=== PATIENT | female | born 1945 | race Two or more races ===

== ENCOUNTER 2024-02-21 09:34 | Inpatient (IN) | payer OTHER ==
[~2024-02-21] VITALS: Ht 162.6 cm; Wt 65.8 kg
[~2024-02-21 09:34] MED LIST: ALPRAZOLAM ODT0.5 MG; CRESTOR10 MG; FARXIGA10 MG; PRADAXA150 MG; PROZAC20 MG; TOPROL XL50 M1
--- NOTE | 2024-02-21 09:53 | NUR ---
SE RECIBE PACIENTE ALERTA Y ORIENTADA X3 REFIERE VENIR POR ORDEN DE LA PARA ESTABALIZAR LA HEMOGLOBINA, YA QUE LA MISMA LE COLOCARAN UN MEDPORT. ES PACIENTE DE CANCER DE COLON. SE MIDEN S/V Y SE PRESENTA ORDEN MEDICA A .
[2024-02-21] MEDS ORDERED: FUSION PLUS CA1 EACH (09:58)
[2024-02-21] MEDS ORDERED: 0.9 % SODIUM CHLORIDE 1,000 ML IV STA (10:28)
--- NOTE | 2024-02-21 11:11 | NUR ---
SE LE ORIENTA A PTE SOBRE TRATAMIENTO E INSTRUCCIONES A SEGUIR, [place] REFIERE ENTENDER. SE COLECETA MUESTRAS, SE CANALIZA Y SE ADMINISTRA IV FLUIDS INOCENTE ORDEN MEDICA. SE REALIZA REQUISICION DE 2 UNIDADES DE PRBC FRACCIONADAS, SE COGE CONCENTIMIENTO.
[2024-02-21 11:23] LABS: MEAN CORPUSCULAR HGB CONC 32.4 g/dl (32.0-36.0); PLATELET COUNT 270 K/uL (150-450); RED BLOOD COUNT 3.34 M/uL (4.00-6.00)
[2024-02-21 11:30] LABS: MEAN CORPUSCULAR HEMOGLOBIN 25.1 pg (27.00-32.0)
[2024-02-21 11:31] LABS: HEMOGLOBIN 8.4 g/dL (12.0-15.00)
[2024-02-21 11:43] LABS: INR 1.1; PARTIAL THROMBOPLASTIN TIME 32.2 SECONDS (22.0-34.0); PROTHROMBIN TIME 11.5 SECONDS (9.0-11.5)
[2024-02-21 11:55] LABS: ALBUMIN 3.8 gm/dL (3.4-5.0); BILIRUBIN TOTAL 0.4 mg/dL (0.3-1.2); BILIRUBIN,CONJUGATED 0.16 mg/dL (0.0-0.2); BILIRUBIN,UNCONJUGATED 0.24 mg/dL (0.0-0.6); CALCIUM 9.6 mg/dL (8.5-10.1); CREATININE SERUM 1.32 mg/dL (0.55-1.02); GFR 38.82; POTASSIUM 4.25 mEq/L (3.5-5.1); TOTAL PROTEIN 7.7 gm/dL (6.4-8.2)
[2024-02-21 13:20] LABS: URINE APPEARANCE Clear; URINE BILIRRUBIN Negative (NEGATIVE); URINE BLOOD Negative; URINE COLOR Yellow; URINE LEUKOCYTE Small; URINE NITRATE Negative; URINE PROTEIN Negative (NEGATIVE); URINE UROBILINOGEN 0.2 E.U./dl
[2024-02-21 13:24] LABS: URINE BACTERIA 60.4 uL (0.0-1933); URINE EPITHELIAL CELLS 26.8 uL (0.0-38.8); URINE RBC 5.4 uL (0.0-20.8); URINE WBC 146.8 uL (0.0-23.2)
[2024-02-21] MEDS ORDERED: DIPHENHYDRAMINE HCL 50 MG/ML VIAL 1ML IV NR (13:45)
[2024-02-21] MEDS ORDERED: FUROsemide 20 MG/2 ML VIAL IV NR (13:45)
[2024-02-21 13:46] LABS: URINE GLUCOSE >=1000 MG/DL (NEGATIVE)
[2024-02-22] MEDS ORDERED: ENALAPRILAT DIHYDRATE 1.25 MG/ML VIAL IV PRN (13:45)
[2024-02-22] MEDS ORDERED: TRAMADOL HCL50 MG PO (17:51)
[2024-02-22 18:05] LABS: HEMATOCRIT 33.5 % (36.0-45.00); MEAN CELL VOLUME 79.1 fL (80.00-100.00); MEAN CORPUSCULAR HGB CONC 32.9 g/dl (32.0-36.0); PLATELET COUNT 251 K/uL (150-450); RED BLOOD COUNT 4.24 M/uL (4.00-6.00); RED CELL DISTRIBUTION WIDTH 20.4 % (11.5-14.5)
[2024-02-22] MEDS ORDERED: HEPARIN SODIUM,PORCINE 500 UNITS/5 ML VIAL IV ONE (20:00)
[2024-02-22] MEDS ORDERED: LIDOCAINE HCL 1%/EPINEPHRINE 20ML VIAL IJ ONE (20:00)
[2024-02-22] MEDS ORDERED: BUPIVACAINE HCL 30 ML VIAL IV ONE (20:00)
[2024-02-22] MEDS ORDERED: CLINDAMYCIN PHOSPHATE 150 MG/ML (900mg) IV ONE (20:00)
== END 2024-02-22 21:36 | disposition home or self-care (01) | DRG 376 ==
LOC: ER 09:35 → SURG 11:04 → SEC-K 11:04 → SURG 12:18
PROVIDERS: General Practice; ADMIT Surgery; ATTEND Surgery
PROC: 30233N1 Transfusion of Nonautologous Red Blood Cells into Peripheral Vein, Percutaneous Approach (ICD-10-PCS; principal; 2024-02-21)
PROC: 05H533Z Insertion of Infusion Device into Right Subclavian Vein, Percutaneous Approach (ICD-10-PCS; 2024-02-22)
DX: C18.2 Malignant neoplasm of ascending colon (principal); Z20.822 Contact with and (suspected) exposure to COVID-19; D63.0 Anemia in neoplastic disease

== ENCOUNTER 2024-07-01 15:18 | Inpatient (IN) | payer OTHER ==
[~2024-07-01] VITALS: Ht 172.7 cm; Wt 159.7 kg
[~2024-07-01 15:18] MED LIST changes: +FUSION PLUS CA1 EACH; +TRAMADOL HCL50 MG PO
[2024-07-01] MEDS ORDERED: METFORMIN HCL500 M3 (15:53)
--- NOTE | 2024-07-01 15:53 | NUR ---
SE RECIBE PTE ALERTA YORIENTADA LA CUAL REFIERE VENIR POR REFERIDO POR DRA. KENDALL CHUNG PARA ADMITIR POR MEDPORT INFECTADO . SE MIDEN S/V A PTE Y SE UBICA.
[2024-07-01] MEDS ORDERED: 0.9 % SODIUM CHLORIDE 1,000 ML IV SCH (16:30)
--- NOTE | 2024-07-01 17:12 | NUR ---
SE ORIENTA A PACIENTE SOBRE TX MEDICO, REFIERE ENTENDER. SE REALIZAN MUESTRAS DE LABORATORIO BAJO MEDIDAS ASEPTICAS. SE ADMINISTRA IV'S INOCENTE ORDEN MEDICA. SE COORDINA VINAYAK X. PACIENTE MANEJADA POR .
[2024-07-01 17:21] LABS: HEMATOCRIT 31.4 % (36.0-45.00); HEMOGLOBIN 10.9 g/dL (12.0-15.00); MEAN CELL VOLUME 88.7 fL (80.00-100.00); MEAN CORPUSCULAR HEMOGLOBIN 30.6 pg (27.00-32.0); MEAN CORPUSCULAR HGB CONC 34.5 g/dl (32.0-36.0); PLATELET COUNT 183 K/uL (150-450); RED BLOOD COUNT 3.54 M/uL (4.00-6.00); RED CELL DISTRIBUTION WIDTH 20.8 % (11.5-14.5)
[2024-07-01 17:47] LABS: INR 1.15; PARTIAL THROMBOPLASTIN TIME 37.3 SECONDS (22.0-34.0); PROTHROMBIN TIME 12.4 SECONDS (9.0-11.5)
[2024-07-01 17:48] LABS: CALCIUM 9.8 mg/dL (8.5-10.1); CREATININE SERUM 1.72 mg/dL (0.55-1.02); GFR 28.6; POTASSIUM 3.91 mEq/L (3.5-5.1)
[2024-07-01] MEDS ORDERED: CIPROFLOXACIN IN 5 % DEXTROSE 400 MG/200 ML PIGGYBAG IV ONE (18:00)
[2024-07-01] MEDS ORDERED: VANCOMYCIN HCL 1,000 MG VIAL IV ONE (18:15)
[2024-07-01 18:44] VITALS: BP 128/75; O2SAT 96
[2024-07-01 20:50] LABS: URINE APPEARANCE Clear; URINE BILIRRUBIN Negative (NEGATIVE); URINE BLOOD Negative; URINE COLOR Yellow; URINE KETONE Negative (NEGATIVE); URINE LEUKOCYTE Negative; URINE NITRATE Negative; URINE PROTEIN Negative (NEGATIVE); URINE UROBILINOGEN 0.2 E.U./dl
[2024-07-01 20:54] LABS: URINE BACTERIA 26.4 uL (0.0-1933); URINE EPITHELIAL CELLS 2.3 uL (0.0-38.8); URINE RBC 3.2 uL (0.0-20.8); URINE WBC 2.6 uL (0.0-23.2)
[2024-07-01 21:06] LABS: URINE CAST 1.37 uL (0.0-1.40); URINE GLUCOSE >=1000 MG/DL (NEGATIVE)
[2024-07-01 22:07] VITALS: BP 131/74; O2SAT 99
[2024-07-02 00:09] VITALS: BP 138/74; O2SAT 100
[2024-07-02] MEDS ORDERED: MORPHINE SULFATE 4 MG/ML CARTRIDGE IV PRN (08:15)
[2024-07-02] MEDS ORDERED: DEXTROSE 50 % IN WATER 0.5 G/ML DISP.SYRIN IV PRN ×2 (08:15→11:00)
[2024-07-02] MEDS ORDERED: 0.9 % SODIUM CHLORIDE 1,000 ML IV SCH (08:15)
[2024-07-02] MEDS ORDERED: ONDANSETRON HCL 2 MG/ML VIAL IV PRN (08:15)
[2024-07-02] MEDS ORDERED: FAMOTIDINE/PF 20 MG/2 ML VIAL IV PUSH SCH (09:00)
[2024-07-02] MEDS ORDERED: CIPROFLOXACIN IN 5 % DEXTROSE 200 ML IV SCH (09:00)
[2024-07-02] MEDS ORDERED: CIPROFLOXACIN IN 5 % DEXTROSE 400 MG/200 ML PIGGYBAG IV SCH (09:00)
[2024-07-02] MEDS ORDERED: GABAPENTIN 300 MG CAPSULE PO SCH (09:00)
[2024-07-02 10:24] LABS: HEMATOCRIT 27.6 % (36.0-45.00); HEMOGLOBIN 9.7 g/dL (12.0-15.00); MEAN CELL VOLUME 89.2 fL (80.00-100.00); MEAN CORPUSCULAR HEMOGLOBIN 31.4 pg (27.00-32.0); MEAN CORPUSCULAR HGB CONC 35.2 g/dl (32.0-36.0); PLATELET COUNT 138 K/uL (150-450); RED BLOOD COUNT 3.09 M/uL (4.00-6.00); RED CELL DISTRIBUTION WIDTH 20.9 % (11.5-14.5)
[2024-07-02] MEDS ORDERED: METOPROLOL SUCCINATE 50 MG TAB.SR.24H PO STA (10:55)
[2024-07-02] MEDS ORDERED: Cyanocobalamin/Mecobalamin 1 TAB.SL SL SCH (10:57)
[2024-07-02] MEDS ORDERED: LINEZOLID IN DEXTROSE 5% 300 ML IV SCH (11:00)
[2024-07-02] MEDS ORDERED: INSULIN LISPRO 1,000 UNIT/10 ML UNITS SUBCUTANEO PRN (11:00)
[2024-07-02 11:16] LABS: INR 1.13; PARTIAL THROMBOPLASTIN TIME 35.7 SECONDS (22.0-34.0); PROTHROMBIN TIME 12.2 SECONDS (9.0-11.5)
[2024-07-02 11:45] VITALS: BP 130/77; O2SAT 99
[2024-07-02] MEDS ORDERED: SOD FERRIC GLUC COMPLX/SUCROSE 62.5 MG in 0.9 % SODIUM CHLORIDE 50 ML IV SCH (12:00)
[2024-07-02 12:43] LABS: COL EPI 95 SECONDS (82-175)
[2024-07-02] MEDS ORDERED: ACETAMINOPHEN 500 MG GEL..CAP PO SCH (14:00)
[2024-07-02 16:00] VITALS: BP 116/56; O2SAT 98
[2024-07-02] MEDS ORDERED: PATIENTS OWN MEDICATION (MEDICAMENTO EN PISO) PO SCH (17:00)
[2024-07-03] VITALS: BP 102/58; O2SAT 97
[2024-07-03 07:10] LABS: HEMATOCRIT 28.4 % (36.0-45.00); HEMOGLOBIN 9.5 g/dL (12.0-15.00); MEAN CORPUSCULAR HEMOGLOBIN 30.3 pg (27.00-32.0); MEAN CORPUSCULAR HGB CONC 33.6 g/dl (32.0-36.0); PLATELET COUNT 137 K/uL (150-450); RED BLOOD COUNT 3.15 M/uL (4.00-6.00)
[2024-07-03 07:37] LABS: ALBUMIN 2.9 gm/dL (3.4-5.0); BILIRUBIN TOTAL 0.38 mg/dL (0.3-1.2); CALCIUM 8.9 mg/dL (8.5-10.1); CREATININE SERUM 1.33 mg/dL (0.55-1.02); GFR 38.49; GLOBULINA 2.9 G/DL (2.4-3.5); MAGNESIUM 1.7 mg/dL (1.8-2.4); POTASSIUM 4.58 mEq/L (3.5-5.1); TOTAL PROTEIN 5.8 gm/dL (6.4-8.2)
[2024-07-03 07:42] LABS: C-REACTIVE PROTEIN 1.24 MG/DL (0.00-0.29)
[2024-07-03 08:18] VITALS: BP 102/65; O2SAT 96
[2024-07-03] MEDS ORDERED: ENOXAPARIN SODIUM 30 MG/0.3 ML SYRINGE SUBCUTANEO SCH (09:00)
[2024-07-03] MEDS ORDERED: CIPROFLOXACIN IN 5 % DEXTROSE 200 ML IV SCH (09:00)
[2024-07-03] MEDS ORDERED: METOPROLOL SUCCINATE 50 MG TAB.SR.24H PO SCH (09:00)
[2024-07-03] MEDS ORDERED: MAGNESIUM SULFATE IN WATER 50 ML IV NR (11:00)
[2024-07-03] MEDS ORDERED: SOD FERRIC GLUC COMPLX/SUCROSE 62.5 MG/5 ML AMPUL IV NR (11:00)
[2024-07-03] MEDS ORDERED: Cyanocobalamin/Mecobalamin 1 TAB.SL SL NR (11:00)
[2024-07-03] MEDS ORDERED: FOLIC ACID 1 MG TABLET PO NR (11:00)
[2024-07-03 12:00] VITALS: BP 92/62; O2SAT 95
[2024-07-03 15:52] VITALS: BP 118/73; O2SAT 96
[2024-07-03] MEDS ORDERED: VANCOMYCIN HCL 5 MG/ML REDILUIDO IV SCH (17:00)
[2024-07-04 00:30] VITALS: BP 104/58; O2SAT 99
[2024-07-04 08:18] VITALS: BP 116/73; O2SAT 95
[2024-07-04] MEDS ORDERED: SOD FERRIC GLUC COMPLX/SUCROSE 62.5 MG/5 ML AMPUL IV SCH (09:00)
[2024-07-04] MEDS ORDERED: Cyanocobalamin/Mecobalamin 1 TAB.SL SL SCH (09:00)
[2024-07-04] MEDS ORDERED: FOLIC ACID 1 MG TABLET PO SCH (09:00)
[2024-07-04 12:13] VITALS: BP 102/62; O2SAT 96
[2024-07-04 17:00] VITALS: BP 137/77; O2SAT 99
[2024-07-04] MEDS ORDERED: PATIENTS OWN MEDICATION (MEDICAMENTO EN PISO) PO SCH (21:00)
[2024-07-05] VITALS: BP 133/73; O2SAT 98
[2024-07-05 07:41] LABS: HEMATOCRIT 29.2 % (36.0-45.00); MEAN CELL VOLUME 89.9 fL (80.00-100.00); MEAN CORPUSCULAR HEMOGLOBIN 30.8 pg (27.00-32.0); MEAN CORPUSCULAR HGB CONC 34.2 g/dl (32.0-36.0); RED BLOOD COUNT 3.25 M/uL (4.00-6.00); RED CELL DISTRIBUTION WIDTH 21.1 % (11.5-14.5)
[2024-07-05 08:00] VITALS: BP 112/75; O2SAT 95
[2024-07-05 08:23] LABS: ALBUMIN 3.2 gm/dL (3.4-5.0); BILIRUBIN TOTAL 0.59 mg/dL (0.3-1.2); CALCIUM 9.3 mg/dL (8.5-10.1); CREATININE SERUM 1.18 mg/dL (0.55-1.02); GFR 44.18; GLOBULINA 3.1 G/DL (2.4-3.5); MAGNESIUM 1.6 mg/dL (1.8-2.4); PHOSPHOROUS 3.5 mg/dL (2.5-4.9); POTASSIUM 4.12 mEq/L (3.5-5.1); TOTAL PROTEIN 6.3 gm/dL (6.4-8.2)
[2024-07-05 08:26] LABS: C-REACTIVE PROTEIN 0.76 MG/DL (0.00-0.29)
[2024-07-05 08:36] LABS: PLATELET COUNT 129 K/uL (150-450)
[2024-07-05] MEDS ORDERED: BACTRIM DS TAB1 EACH PO (10:42)
== END 2024-07-05 13:33 | disposition home or self-care (01) | DRG 315 ==
LOC: ER 15:20 → SURH 18:25
PROVIDERS: Emergency Medicine; Internal Medicine Geriatric Medicine; Internal Medicine Infectious Disease; ADMIT Surgery; ATTEND Surgery
PROC: 0JPV0WZ Removal of Totally Implantable Vascular Access Device from Upper Extremity Subcutaneous Tissue and Fascia, Open Approach (ICD-10-PCS; 2024-07-02)
PROC: 4A12X4Z Monitoring of Cardiac Electrical Activity, External Approach (ICD-10-PCS; principal; 2024-07-02 07:00)
DX: T82.7XXA Infection and inflammatory reaction due to other cardiac and vascular devices, implants and grafts, initial encounter (principal); C18.2 Malignant neoplasm of ascending colon; Y65.8 Other specified misadventures during surgical and medical care; I10 Essential (primary) hypertension; Z79.4 Long term (current) use of insulin

== ENCOUNTER 2024-07-19 11:15 | Inpatient (IN) | payer OTHER ==
[~2024-07-19] VITALS: Ht 165.1 cm; Wt 83.0 kg
[~2024-07-19 11:15] MED LIST changes: +BACTRIM DS TAB1 EACH PO; +METFORMIN HCL500 M3
[2024-07-19] MEDS ORDERED: PRILOSEC OTC20 MG PO (14:52)
[2024-07-19] MEDS ORDERED: PRADAXA150 MG PO (14:52)
[2024-07-19] MEDS ORDERED: FLUOXETINE (14:53)
[2024-07-19] MEDS ORDERED: PEPCID AC20 MG PO (14:54)
[2024-07-19] MEDS ORDERED: XANAX XR0.5 MG PO (14:55)
[2024-07-23] MEDS ORDERED: LIDOCAINE HCL 1%/EPINEPHRINE 20ML VIAL IJ ONE (09:15)
[2024-07-23] MEDS ORDERED: levoFLOXacin IN DEXTROSE 5 % 5 MG/ML PIGGYBAG IV SCH (09:15)
[2024-07-23] MEDS ORDERED: BUPIVACAINE HCL 30 ML VIAL IJ ONE (09:15)
[2024-07-23] MEDS ORDERED: METRONIDAZOLE/SODIUM CHLORIDE 500 MG/100 ML PIGGYBACK IV SCH (09:15)
[2024-07-23] MEDS ORDERED: 0.9 % SODIUM CHLORIDE 1,000 ML IV SCH (10:45)
[2024-07-23] MEDS ORDERED: ONDANSETRON HCL 2 MG/ML VIAL IV PRN (10:45)
[2024-07-23] MEDS ORDERED: DEXTROSE 50 % IN WATER 0.5 G/ML DISP.SYRIN IV PRN ×2 (10:45→15:30)
[2024-07-23] MEDS ORDERED: MORPHINE SULFATE 4 MG/ML CARTRIDGE IV PRN (10:45)
[2024-07-23 13:30] LABS: HEMATOCRIT 28.8 % (36.0-45.00); HEMOGLOBIN 9.7 g/dL (12.0-15.00); MEAN CELL VOLUME 94.7 fL (80.00-100.00); MEAN CORPUSCULAR HEMOGLOBIN 31.8 pg (27.00-32.0); MEAN CORPUSCULAR HGB CONC 33.6 g/dl (32.0-36.0); PLATELET COUNT 158 K/uL (150-450); RED BLOOD COUNT 3.04 M/uL (4.00-6.00); RED CELL DISTRIBUTION WIDTH 19.3 % (11.5-14.5)
[2024-07-23] MEDS ORDERED: MORPHINE SULFATE 4 MG/ML VIAL IV ONE ×2 (13:40→14:10)
[2024-07-23] MEDS ORDERED: ACETAMINOPHEN 500 MG GEL..CAP PO SCH (14:00)
[2024-07-23] MEDS ORDERED: ENALAPRILAT DIHYDRATE 1.25 MG/ML VIAL IV PRN (15:30)
[2024-07-23] MEDS ORDERED: INSULIN LISPRO 1,000 UNIT/10 ML UNITS SUBCUTANEO PRN (15:30)
[2024-07-23] MEDS ORDERED: MEPERIDINE HCL 25 MG/ML AMPUL IV ONE (16:30)
[2024-07-23] MEDS ORDERED: SOD FERRIC GLUC COMPLX/SUCROSE 62.5 MG in 0.9 % SODIUM CHLORIDE 50 ML IV SCH (17:00)
[2024-07-23] MEDS ORDERED: POLYETHYLENE GLYCOL 3350 17 GM BLIST.PACK PO SCH (17:00)
[2024-07-23] MEDS ORDERED: HYOSCYAMINE SULFATE 0.125 MG TAB.SUBL SL SCH (17:00)
[2024-07-23] MEDS ORDERED: METOCLOPRAMIDE HCL 5 MG/ML VIAL IV SCH (17:00)
[2024-07-23 20:22] VITALS: BP 112/54; O2SAT 98
[2024-07-23] MEDS ORDERED: METOPROLOL SUCCINATE 50 MG TAB.SR.24H PO SCH (21:00)
[2024-07-23] MEDS ORDERED: FAMOTIDINE/PF 20 MG/2 ML VIAL IV PUSH SCH (21:00)
[2024-07-24 00:11] VITALS: BP 127/56; O2SAT 95
[2024-07-24] MEDS ORDERED: METOPROLOL TARTRATE 5MG/5ML AMPUL IV SCH (06:00)
[2024-07-24 07:04] LABS: HEMATOCRIT 26.7 % (36.0-45.00); HEMOGLOBIN 9.4 g/dL (12.0-15.00); MEAN CELL VOLUME 93.1 fL (80.00-100.00); MEAN CORPUSCULAR HEMOGLOBIN 32.7 pg (27.00-32.0); MEAN CORPUSCULAR HGB CONC 35.2 g/dl (32.0-36.0); PLATELET COUNT 150 K/uL (150-450); RED BLOOD COUNT 2.87 M/uL (4.00-6.00); RED CELL DISTRIBUTION WIDTH 19.2 % (11.5-14.5)
[2024-07-24 07:31] LABS: ALBUMIN 2.9 gm/dL (3.4-5.0); CALCIUM 8.6 mg/dL (8.5-10.1); CREATININE SERUM 1.1 mg/dL (0.55-1.02); GFR 47.91; MAGNESIUM 1.6 mg/dL (1.8-2.4); PHOSPHOROUS 3.9 mg/dL (2.5-4.9); POTASSIUM 4.25 mEq/L (3.5-5.1)
[2024-07-24 08:00] VITALS: BP 118/57; O2SAT 96
[2024-07-24] MEDS ORDERED: Cyanocobalamin/Mecobalamin 1 TAB.SL SL SCH (09:00)
[2024-07-24] MEDS ORDERED: MEPERIDINE HCL/PF 25 MG/ML VIAL IM PRN (13:30)
[2024-07-24] MEDS ORDERED: PROMETHAZINE HCL 25 MG/ML AMPUL IM PRN (13:30)
[2024-07-24 16:00] VITALS: BP 137/63; O2SAT 100
[2024-07-24] MEDS ORDERED: ENOXAPARIN SODIUM 40 MG/0.4 ML SYRINGE SUBCUTANEO SCH (17:00)
[2024-07-24] MEDS ORDERED: PATIENTS OWN MEDICATION (MEDICAMENTO EN PISO) PO SCH (17:00)
[2024-07-24] MEDS ORDERED: FLUOXETINE HCL 20 MG CAPSULE PO SCH (21:00)
[2024-07-25] VITALS (7 sets, daily range): BP systolic 98–132; BP diastolic 55–66; O2SAT 95–97
[2024-07-25 07:43] LABS: HEMATOCRIT 26.2 % (36.0-45.00); HEMOGLOBIN 9.2 g/dL (12.0-15.00); MEAN CELL VOLUME 93.7 fL (80.00-100.00); MEAN CORPUSCULAR HEMOGLOBIN 32.8 pg (27.00-32.0); MEAN CORPUSCULAR HGB CONC 35.1 g/dl (32.0-36.0); PLATELET COUNT 149 K/uL (150-450); RED CELL DISTRIBUTION WIDTH 19.3 % (11.5-14.5)
[2024-07-25 08:51] LABS: CALCIUM 9.1 mg/dL (8.5-10.1); CREATININE SERUM 1.13 mg/dL (0.55-1.02); GFR 46.45; MAGNESIUM 1.6 mg/dL (1.8-2.4); PHOSPHOROUS 2.3 mg/dL (2.5-4.9); POTASSIUM 3.67 mEq/L (3.5-5.1)
[2024-07-25] MEDS ORDERED: ENOXAPARIN SODIUM 40 MG/0.4 ML SYRINGE SUBCUTANEO SCH (09:00)
[2024-07-25] MEDS ORDERED: POTASSIUM PHOS,M-BASIC-D-BASIC 3 MM/ML VIAL IV NR (09:15)
[2024-07-25] MEDS ORDERED: MAGNESIUM SULFATE IN WATER 50 ML IV NR (09:15)
[2024-07-25] MEDS ORDERED: HYOSCYAMINE SULFATE 0.125 MG TAB.SUBL SL PRN (14:00)
[2024-07-25] MEDS ORDERED: AMINOCAPROIC ACID 250 MG/ML VIAL IV STA (14:45)
[2024-07-25 15:02] LABS: HEMATOCRIT 30.5 % (36.0-45.00); HEMOGLOBIN 10.1 g/dL (12.0-15.00); MEAN CELL VOLUME 95.3 fL (80.00-100.00); MEAN CORPUSCULAR HEMOGLOBIN 31.6 pg (27.00-32.0); MEAN CORPUSCULAR HGB CONC 33.1 g/dl (32.0-36.0); PLATELET COUNT 183 K/uL (150-450)
[2024-07-25] MEDS ORDERED: SIMETHICONE 125 MG CAPSULE PO SCH (17:00)
[2024-07-25] MEDS ORDERED: PANTOPRAZOLE SODIUM 40 MG in 0.9 % SODIUM CHLORIDE 8 ML IV PUSH SCH (17:00)
[2024-07-25] MEDS ORDERED: AMINOCAPROIC ACID 250 MG/ML VIAL IV SCH (20:00)
[2024-07-26] VITALS (7 sets, daily range): BP systolic 90–95; BP diastolic 55–61; O2SAT 90–97
[2024-07-26 03:44] LABS: HEMATOCRIT 27.8 % (36.0-45.00); HEMOGLOBIN 9.4 g/dL (12.0-15.00); MEAN CELL VOLUME 94.5 fL (80.00-100.00); MEAN CORPUSCULAR HGB CONC 33.9 g/dl (32.0-36.0); PLATELET COUNT 140 K/uL (150-450); RED BLOOD COUNT 2.94 M/uL (4.00-6.00); RED CELL DISTRIBUTION WIDTH 18.1 % (11.5-14.5)
[2024-07-26 10:41] LABS: HEMATOCRIT 26.3 % (36.0-45.00); HEMOGLOBIN 9.1 g/dL (12.0-15.00); MEAN CELL VOLUME 92.6 fL (80.00-100.00); MEAN CORPUSCULAR HEMOGLOBIN 32.2 pg (27.00-32.0); MEAN CORPUSCULAR HGB CONC 34.8 g/dl (32.0-36.0); PLATELET COUNT 139 K/uL (150-450); RED BLOOD COUNT 2.84 M/uL (4.00-6.00); RED CELL DISTRIBUTION WIDTH 18.4 % (11.5-14.5)
[2024-07-26 11:37] LABS: CALCIUM 8.6 mg/dL (8.5-10.1); CREATININE SERUM 1.04 mg/dL (0.55-1.02); GFR 51.12; MAGNESIUM 2.1 mg/dL (1.8-2.4); PHOSPHOROUS 2.7 mg/dL (2.5-4.9); POTASSIUM 3.61 mEq/L (3.5-5.1)
[2024-07-26] MEDS ORDERED: FUROsemide 20 MG/2 ML VIAL IV SCH (12:00)
[2024-07-26 21:08] LABS: HEMATOCRIT 29.4 % (36.0-45.00); HEMOGLOBIN 10.2 g/dL (12.0-15.00); MEAN CORPUSCULAR HEMOGLOBIN 31.8 pg (27.00-32.0); MEAN CORPUSCULAR HGB CONC 34.6 g/dl (32.0-36.0); PLATELET COUNT 139 K/uL (150-450); RED BLOOD COUNT 3.19 M/uL (4.00-6.00); RED CELL DISTRIBUTION WIDTH 17.6 % (11.5-14.5)
[2024-07-27] VITALS (7 sets, daily range): BP systolic 95–106; BP diastolic 57–65; O2SAT 94–97
[2024-07-27 06:53] LABS: HEMATOCRIT 28.7 % (36.0-45.00); HEMOGLOBIN 9.7 g/dL (12.0-15.00); MEAN CELL VOLUME 93.4 fL (80.00-100.00); MEAN CORPUSCULAR HEMOGLOBIN 31.6 pg (27.00-32.0); MEAN CORPUSCULAR HGB CONC 33.8 g/dl (32.0-36.0); PLATELET COUNT 130 K/uL (150-450); RED BLOOD COUNT 3.07 M/uL (4.00-6.00)
[2024-07-27 07:41] LABS: CALCIUM 8.2 mg/dL (8.5-10.1); CREATININE SERUM 0.92 mg/dL (0.55-1.02); GFR 58.89; MAGNESIUM 1.9 mg/dL (1.8-2.4); PHOSPHOROUS 2.1 mg/dL (2.5-4.9); POTASSIUM 3.53 mEq/L (3.5-5.1)
[2024-07-27] MEDS ORDERED: POTASSIUM PHOS,M-BASIC-D-BASIC 3 MM/ML VIAL IV NR (10:45)
[2024-07-27] MEDS ORDERED: PATIENTS OWN MEDICATION (MEDICAMENTO EN PISO) PO SCH (17:00)
[2024-07-28] VITALS (10 sets, daily range): BP systolic 101–131; BP diastolic 62–76; O2SAT 90–100
[2024-07-28 08:28] LABS: CREATININE SERUM 0.77 mg/dL (0.55-1.02); GFR 72.31; MAGNESIUM 1.6 mg/dL (1.8-2.4); POTASSIUM 3.52 mEq/L (3.5-5.1)
[2024-07-28 08:30] LABS: HEMATOCRIT 27.8 % (36.0-45.00); HEMOGLOBIN 9.9 g/dL (12.0-15.00); MEAN CELL VOLUME 91.3 fL (80.00-100.00); MEAN CORPUSCULAR HEMOGLOBIN 32.4 pg (27.00-32.0); MEAN CORPUSCULAR HGB CONC 35.5 g/dl (32.0-36.0); PLATELET COUNT 151 K/uL (150-450); RED BLOOD COUNT 3.04 M/uL (4.00-6.00); RED CELL DISTRIBUTION WIDTH 17.8 % (11.5-14.5)
[2024-07-28 10:10] LABS: MANUAL PLATELET COUNT 160; PHOSPHOROUS 1.9 mg/dL (2.5-4.9)
[2024-07-28] MEDS ORDERED: POTASSIUM PHOS,M-BASIC-D-BASIC 15 MM in 0.9 % SODIUM CHLORIDE 250 ML IV NR (10:30)
[2024-07-28] MEDS ORDERED: PANTOPRAZOLE SODIUM 40 MG TABLET.DR PO SCH (13:02)
[2024-07-28] MEDS ORDERED: LORATADINE 10 MG TABLET PO SCH (21:00)
[2024-07-29] VITALS: BP 125/62; O2SAT 96
[2024-07-29 00:51] VITALS: O2SAT 95
[2024-07-29 05:16] VITALS: O2SAT 90
[2024-07-29 08:00] VITALS: BP 140/83; O2SAT 94
[2024-07-29] MEDS ORDERED: INTESTINEX680 M1 PO (10:43)
[2024-07-29] MEDS ORDERED: LEVSIN/SL0.125 MG SL (10:43)
[2024-07-29] MEDS ORDERED: GAS-X ULTRA ST180 MG PO (10:44)
== END 2024-07-29 15:38 | disposition home or self-care (01) | DRG 326 ==
LOC: SURG 07-23 05:35 → O/R 07-23 05:35 → SURH 07-23 11:15 → SURG 07-23 14:36 → SURH 07-23 17:30 → SURG 07-29 15:38
PROVIDERS: Internal Medicine Geriatric Medicine; ADMIT Surgery; ATTEND Surgery
PROC: 0DTF4ZZ Resection of Right Large Intestine, Percutaneous Endoscopic Approach (ICD-10-PCS; 2024-07-23)
PROC: 07BB4ZZ Excision of Mesenteric Lymphatic, Percutaneous Endoscopic Approach (ICD-10-PCS; 2024-07-23)
PROC: 0DBU4ZZ Excision of Omentum, Percutaneous Endoscopic Approach (ICD-10-PCS; 2024-07-23)
PROC: 0DJ08ZZ Inspection of Upper Intestinal Tract, Via Natural or Artificial Opening Endoscopic (ICD-10-PCS; 2024-07-23)
PROC: 0DQ94ZZ Repair Duodenum, Percutaneous Endoscopic Approach (ICD-10-PCS; principal; 2024-07-23 17:30)
PROC: 4A12X4Z Monitoring of Cardiac Electrical Activity, External Approach (ICD-10-PCS; 2024-07-25)
PROC: 30233N1 Transfusion of Nonautologous Red Blood Cells into Peripheral Vein, Percutaneous Approach (ICD-10-PCS; 2024-07-25)
DX: C18.2 Malignant neoplasm of ascending colon (principal); K68.2 Retroperitoneal fibrosis; K92.2 Gastrointestinal hemorrhage, unspecified; C78.6 Secondary malignant neoplasm of retroperitoneum and peritoneum; S36.430A Laceration of duodenum, initial encounter; D64.9 Anemia, unspecified; R59.0 Localized enlarged lymph nodes; N73.6 Female pelvic peritoneal adhesions (postinfective); N99.4 Postprocedural pelvic peritoneal adhesions; I48.91 Unspecified atrial fibrillation; I10 Essential (primary) hypertension

== ENCOUNTER 2024-09-11 06:31 | Inpatient (IN) | payer OTHER ==
[~2024-09-11] VITALS: Ht 165.1 cm; Wt 82.1 kg
[~2024-09-11 06:31] MED LIST changes: +FLUOXETINE; +GAS-X ULTRA ST180 MG PO; +INTESTINEX680 M1 PO; +LEVSIN/SL0.125 MG SL; +PEPCID AC20 MG PO; +PRADAXA150 MG PO; +PRILOSEC OTC20 MG PO; +XANAX XR0.5 MG PO
[2024-09-11 08:57] LABS: HEMATOCRIT 23.7 % (36.0-45.00); MEAN CELL VOLUME 92.1 fL (80.00-100.00); MEAN CORPUSCULAR HEMOGLOBIN 32.1 pg (27.00-32.0); MEAN CORPUSCULAR HGB CONC 34.8 g/dl (32.0-36.0); PLATELET COUNT 216 K/uL (150-450); RED BLOOD COUNT 2.58 M/uL (4.00-6.00); RED CELL DISTRIBUTION WIDTH 16.6 % (11.5-14.5)
[2024-09-11 08:58] LABS: HEMOGLOBIN 8.3 g/dL (12.0-15.00)
[2024-09-11 09:19] LABS: INR 1.08; PARTIAL THROMBOPLASTIN TIME 27.9 SECONDS (22.0-34.0); PROTHROMBIN TIME 11.7 SECONDS (9.0-11.5)
[2024-09-11 09:21] LABS: ALBUMIN 3.2 gm/dL (3.4-5.0); BILIRUBIN TOTAL 0.48 mg/dL (0.3-1.2); BILIRUBIN,CONJUGATED 0.14 mg/dL (0.0-0.2); BILIRUBIN,UNCONJUGATED 0.34 mg/dL (0.0-0.6); CREATININE SERUM 1.28 mg/dL (0.55-1.02); GFR 40.23; GLOBULINA 3.6 G/DL (2.4-3.5); POTASSIUM 4.1 mEq/L (3.5-5.1); TOTAL PROTEIN 6.8 gm/dL (6.4-8.2)
[2024-09-11 11:00] LABS: URINE APPEARANCE Clear; URINE BILIRRUBIN Negative (NEGATIVE); URINE BLOOD Negative; URINE COLOR Yellow; URINE KETONE Negative (NEGATIVE); URINE LEUKOCYTE Negative; URINE NITRATE Negative; URINE PROTEIN Negative (NEGATIVE); URINE UROBILINOGEN 0.2 E.U./dl
[2024-09-11 11:05] LABS: URINE BACTERIA 39.1 uL (0.0-1933); URINE WBC 7.2 uL (0.0-23.2)
[2024-09-11 11:13] LABS: URINE CAST 0.14 uL (0.0-1.40); URINE GLUCOSE >=1000 MG/DL (NEGATIVE); URINE RBC 0.7 uL (0.0-20.8)
[2024-09-11] MEDS ORDERED: DIPHENHYDRAMINE HCL 50 MG/ML VIAL 1ML IV ONE (11:15)
[2024-09-11] MEDS ORDERED: FUROsemide 20 MG/2 ML VIAL IV SCH (11:15)
[2024-09-11] MEDS ORDERED: DIPHENHYDRAMINE HCL 50 MG/ML VIAL 1ML ONE (13:11)
[2024-09-11] MEDS ORDERED: DIPHENHYDRAMINE HCL 50 MG/ML VIAL 1ML IV SCH (14:00)
[2024-09-11 14:45] LABS: HEMATOCRIT 26.4 % (36.0-45.00); MEAN CELL VOLUME 93.1 fL (80.00-100.00); MEAN CORPUSCULAR HGB CONC 33.5 g/dl (32.0-36.0); PLATELET COUNT 221 K/uL (150-450); RED BLOOD COUNT 2.84 M/uL (4.00-6.00); RED CELL DISTRIBUTION WIDTH 16.8 % (11.5-14.5)
[2024-09-11 14:50] LABS: HEMOGLOBIN 8.8 g/dL (12.0-15.00); MEAN CORPUSCULAR HEMOGLOBIN 30.9 pg (27.00-32.0)
[2024-09-11 15:39] VITALS: BP 117/73; O2SAT 100
[2024-09-11 16:44] VITALS: BP 136/78; O2SAT 97
[2024-09-11] MEDS ORDERED: METOPROLOL SUCCINATE 50 MG TAB.SR.24H PO SCH (21:00)
[2024-09-11] MEDS ORDERED: FAMOTIDINE/PF 20 MG/2 ML VIAL IV SCH (21:00)
[2024-09-12 00:27] VITALS: BP 125/65; O2SAT 95
[2024-09-12 09:10] VITALS: BP 123/63; O2SAT 98
[2024-09-12 09:52] LABS: HEMOGLOBIN 11.1 g/dL (12.0-15.00); MEAN CELL VOLUME 91.3 fL (80.00-100.00); MEAN CORPUSCULAR HEMOGLOBIN 30.7 pg (27.00-32.0); MEAN CORPUSCULAR HGB CONC 33.6 g/dl (32.0-36.0); PLATELET COUNT 227 K/uL (150-450); RED BLOOD COUNT 3.61 M/uL (4.00-6.00); RED CELL DISTRIBUTION WIDTH 16.7 % (11.5-14.5)
[2024-09-12] MEDS ORDERED: FUROsemide 20 MG/2 ML VIAL IV SCH (11:15)
[2024-09-12] MEDS ORDERED: TRAM1TAB98 PO (15:15)
[2024-09-12 18:19] VITALS: BP 140/78; O2SAT 100
== END 2024-09-12 17:34 | disposition home or self-care (01) | DRG 376 ==
LOC: ER 06:34 → MEDI 12:24 → SEC-K 12:24 → MEDI 12:40
PROVIDERS: Emergency Medicine; ADMIT Surgery; ATTEND Surgery
PROC: 30233N1 Transfusion of Nonautologous Red Blood Cells into Peripheral Vein, Percutaneous Approach (ICD-10-PCS; principal; 2024-09-11)
PROC: 05H633Z Insertion of Infusion Device into Left Subclavian Vein, Percutaneous Approach (ICD-10-PCS; 2024-09-12)
DX: C18.0 Malignant neoplasm of cecum (principal); D64.9 Anemia, unspecified; I10 Essential (primary) hypertension; I48.91 Unspecified atrial fibrillation; E78.00 Pure hypercholesterolemia, unspecified

== ENCOUNTER 2025-04-02 10:00 | Inpatient (IN) | payer OTHER ==
[~2025-04-02] VITALS: Ht 165.1 cm; Wt 69.4 kg
[~2025-04-02 10:00] MED LIST changes: +TRAM1TAB98 PO
[2025-04-02 13:11] LABS: COVID-19 AG NEGATIVE (NEGATIVE)
[2025-04-02 13:31] VITALS: BP 122/84
[2025-04-02 13:54] LABS: RH POSITIVE
[2025-04-04 08:44] LABS: INR 1.01
[2025-04-04] MEDS ORDERED: METRONIDAZOLE/SODIUM CHLORIDE 500 MG/100 ML PIGGYBACK IV ONE (14:30)
[2025-04-04] MEDS ORDERED: CLINDAMYCIN PHOSPHATE 150 MG/ML (600mg) IV ONE (14:30)
[2025-04-04] MEDS ORDERED: VISTASEAL DUAL APPICATOR 1 EACH APPL TOP ONE (14:45)
[2025-04-04] MEDS ORDERED: THROMBIN,HU/FIBRINOGEN/CALCIUM 10 ML SYRINGE TOP ONE (14:45)
[2025-04-04] MEDS ORDERED: RINGERS SOLUTION,LACTATED 1,000 ML IV SCH (15:00)
[2025-04-04] MEDS ORDERED: ONDANSETRON HCL 2 MG/ML VIAL IV PRN (15:00)
[2025-04-04] MEDS ORDERED: SIMETHICONE 125 MG CAPSULE PO SCH (17:00)
[2025-04-04] MEDS ORDERED: GABAPENTIN 300 MG CAPSULE PO SCH (17:00)
[2025-04-04] MEDS ORDERED: METRONIDAZOLE/SODIUM CHLORIDE 500 MG/100 ML PIGGYBACK IV SCH (17:00)
[2025-04-04 17:14] LABS: BASO % 0.2 % (0.1-1.2); EOS # 0.02 (0.04-0.54); EOS % 0.3 % (0.7-7.0); LYMPH # 0.84 (1.18-3.74); LYMPH % 13.7 % (19.3-53.1); MEAN PLATELET VOLUME 9.30 fl (9.4-12.4); MONO # 0.28 (0.24-0.82); MONO % 4.6 % (4.7-12.5); NEUT # 4.95 (1.56-6.13); NEUT % 80.9 % (34.0-71.1); RED CELL DISTRIBUTION WIDTH 14.8 % (11.6-14.4)
[2025-04-04 17:45] VITALS: BP 140/74; O2SAT 99
[2025-04-04 17:46] LABS: BUN CREA RATIO 28.0 (7.0-25.0); CREATININE SERUM 0.79 mg/dL (0.55-1.02); GFR 70.02; GLUCOSE FASTING 128.0 mg/dL (65-100); OSMOLALITY SERUM 283.0 MOSM/KG (275-295)
[2025-04-04] MEDS ORDERED: ACETAMINOPHEN 500 MG GEL..CAP PO SCH (18:00)
[2025-04-04] MEDS ORDERED: KETOROLAC TROMETHAMINE 30 MG VIAL IM SCH (18:00)
[2025-04-04] MEDS ORDERED: DOCUSATE SODIUM 100MG CAP PO SCH (21:00)
[2025-04-04] MEDS ORDERED: FAMOTIDINE/PF 20 MG/2 ML VIAL IV PUSH SCH (21:00)
[2025-04-05 00:20] VITALS: BP 117/66; O2SAT 99
[2025-04-05 04:30] VITALS: BP 97/60
[2025-04-05 06:31] LABS: BASO % 0.4 % (0.1-1.2); EOS # 0.06 (0.04-0.54); EOS % 1.3 % (0.7-7.0); LYMPH # 0.79 (1.18-3.74); LYMPH % 16.7 % (19.3-53.1); MEAN PLATELET VOLUME 10.70 fl (9.4-12.4); MONO # 0.29 (0.24-0.82); MONO % 6.1 % (4.7-12.5); NEUT # 3.56 (1.56-6.13); NEUT % 75.1 % (34.0-71.1); RED CELL DISTRIBUTION WIDTH 15.1 % (11.6-14.4)
[2025-04-05 06:59] LABS: BUN CREA RATIO 20.0 (7.0-25.0); CREATININE SERUM 0.87 mg/dL (0.55-1.02); GFR 62.65; GLUCOSE FASTING 75.0 mg/dL (65-100); OSMOLALITY SERUM 281.0 MOSM/KG (275-295)
[2025-04-05] MEDS ORDERED: METOPROLOL SUCCINATE 50 MG TAB.SR.24H PO SCH (09:00)
[2025-04-05] MEDS ORDERED: ENOXAPARIN SODIUM 40 MG/0.4 ML SYRINGE SUBCUTANEO SCH (09:00)
[2025-04-05 10:12] VITALS: BP 91/56
[2025-04-05 18:00] VITALS: BP 102/60; O2SAT 98
[2025-04-05] MEDS ORDERED: FOLIC ACID 1 MG TABLET PO NR (18:00)
[2025-04-05] MEDS ORDERED: IRON FUM,PS/FOLIC/BCOMP,C NO.9 1 CAP CAPSULE PO NR (18:00)
[2025-04-05] MEDS ORDERED: Cyanocobalamin/Mecobalamin 1 TAB.SL SL NR (18:00)
[2025-04-05 23:57] VITALS: BP 115/74; O2SAT 97
[2025-04-06 08:00] VITALS: BP 98/65
[2025-04-06] MEDS ORDERED: FOLIC ACID 1 MG TABLET PO SCH (09:00)
[2025-04-06] MEDS ORDERED: IRON FUM,PS/FOLIC/BCOMP,C NO.9 1 CAP CAPSULE PO SCH (09:00)
[2025-04-06] MEDS ORDERED: Cyanocobalamin/Mecobalamin 1 TAB.SL SL SCH (09:00)
== END 2025-04-06 10:31 | disposition home or self-care (01) | DRG 357 ==
LOC: O/R 04-04 09:00 → OB/GYN 04-04 09:00 → SURH 04-04 10:00 → OB/GYN 04-04 15:55 → SURH 04-04 20:00 → OB/GYN 04-06 10:31
PROVIDERS: ADMIT Obstetrics & Gynecology Gynecologic Oncology; ATTEND Obstetrics & Gynecology Gynecologic Oncology
PROC: 0UT94ZZ Resection of Uterus, Percutaneous Endoscopic Approach (ICD-10-PCS; 2025-04-04)
PROC: 0UT74ZZ Resection of Bilateral Fallopian Tubes, Percutaneous Endoscopic Approach (ICD-10-PCS; 2025-04-04)
PROC: 0UT24ZZ Resection of Bilateral Ovaries, Percutaneous Endoscopic Approach (ICD-10-PCS; 2025-04-04)
PROC: 07BD4ZZ Excision of Aortic Lymphatic, Percutaneous Endoscopic Approach (ICD-10-PCS; 2025-04-04)
PROC: 0DBU4ZZ Excision of Omentum, Percutaneous Endoscopic Approach (ICD-10-PCS; 2025-04-04)
PROC: 8E0W4CZ Robotic Assisted Procedure of Trunk Region, Percutaneous Endoscopic Approach (ICD-10-PCS; 2025-04-04)
PROC: 3E1M48Z Irrigation of Peritoneal Cavity using Irrigating Substance, Percutaneous Endoscopic Approach (ICD-10-PCS; 2025-04-04)
PROC: 0DBW4ZZ Excision of Peritoneum, Percutaneous Endoscopic Approach (ICD-10-PCS; 2025-04-04)
PROC: 07BC4ZZ Excision of Pelvis Lymphatic, Percutaneous Endoscopic Approach (ICD-10-PCS; principal; 2025-04-04 20:00)
DX: C48.1 Malignant neoplasm of specified parts of peritoneum (principal); C78.6 Secondary malignant neoplasm of retroperitoneum and peritoneum; C79.63 Secondary malignant neoplasm of bilateral ovaries; C79.82 Secondary malignant neoplasm of genital organs; N84.0 Polyp of corpus uteri; N84.1 Polyp of cervix uteri; N72 Inflammatory disease of cervix uteri; D25.9 Leiomyoma of uterus, unspecified; N80.03 Adenomyosis of the uterus
CPT/HCPCS: 58575; 58548; 49084; 58954; S2900